=== PATIENT | female | born 1950 | race Caucasian/White ===

== ENCOUNTER 2022-02-14 07:02 | Day surgery (SDC) | payer OTHER, MEDICARE ==
[2022-02-13 10:07] LABS: Absolute Lymphocytes (CBC) 1.6 K/uL (0.7-4.9); Hematocrit 38.7 % (36.0-45.0); Lymphocytes % 30.2 % (15.3-44.8); MPV 8.6 fL (7.6-11.3); RBC Red Blood Cell Count 3.93 M/uL (3.86-4.86)
[2022-02-13 10:21] LABS: Potassium 3.8 mmol/L (3.5-5.1)
--- NOTE | 2022-02-13 14:12 | EKG ---
Test Date: 2022-02-13 Test Time: 07:52:04 Hand Molder: SANDIP MEASUREMENT RESULTS: Intervals: Rate: 74 VA: 158 QRSD: 144 QT: 432 QTc: 479 Veteran: P: 59 VA: 158 QRS: -15 T: 169 INTERPRETIVE STATEMENTS: Normal sinus rhythm with sinus arrhythmia Left bundle branch block Abnormal ECG No previous ECG available for comparison Electronically Signed On 02-13-22 14:11:17 CDT by Omid Bolaños
[2022-02-14] MEDS ORDERED: Ringers Lactate 1,000 ML IV ONE (07:29)
[2022-02-14] MEDS ORDERED: LIDOCAINE 1% MPF 5 ML VIAL ONE (08:16)
[2022-02-14] MEDS ORDERED: propofoL 200 MG/20 ML VIAL IV ONE ×2 (08:16→08:37)
[2022-02-14 08:57] VITALS: TEMP 97.7; O2SAT 97
[2022-02-14 09:35] VITALS: BP 154/72
== END 2022-02-14 09:20 | disposition home or self-care (01) ==
LOC: OR 07:02
PROVIDERS: ATTEND Surgery
PROC: 0DB78ZX Excision of Stomach, Pylorus, Via Natural or Artificial Opening Endoscopic, Diagnostic (ICD-10-PCS; 2022-02-14)
PROC: 0DB58ZX Excision of Esophagus, Via Natural or Artificial Opening Endoscopic, Diagnostic (ICD-10-PCS; 2022-02-14)
PROC: 0DB38ZX Excision of Lower Esophagus, Via Natural or Artificial Opening Endoscopic, Diagnostic (ICD-10-PCS; 2022-02-14)
PROC: 0DB98ZX Excision of Duodenum, Via Natural or Artificial Opening Endoscopic, Diagnostic (ICD-10-PCS; principal; 2022-02-14 08:15)
DX: K21.9 Gastro-esophageal reflux disease without esophagitis (principal); Z87.19 Personal history of other diseases of the digestive system; Z20.822 Contact with and (suspected) exposure to COVID-19; K29.50 Unspecified chronic gastritis without bleeding; K21.00 Gastro-esophageal reflux disease with esophagitis, without bleeding; K22.81 Esophageal polyp
CPT/HCPCS: 93005; 85025; 80048; 36415; 88312; 88313; 88305 ×2; 43239; 43251; U0003; J2704 ×2; J7120

== ENCOUNTER 2024-06-20 11:44 | Inpatient (IN) | payer OTHER, MEDICARE ==
[2024-06-20] MEDS ORDERED: CEFEPIME 2 GM VIAL ONE (12:06)
[2024-06-20] MEDS ORDERED: NA CHLORIDE 0.9% 1,000 ML ONE (12:07)
[2024-06-20] MEDS ORDERED: NA CHLORIDE 0.9% 100 ML ONE (12:07)
[2024-06-20 12:51] LABS: Specific Gravity 1.009 (1.005-1.030); Urine Bacteria <20 /HPF (<20); Urine Bilirubin NEGATIVE (Negative); Urine Blood Negative (Negative); Urine Clarity Extremely Turbid (Clear); Urine Color Light-Yellow (Yellow); Urine Culture Reflex Order REFLEXED; Urine Glucose NEGATIVE (Negative); Urine Ketones NEGATIVE (Negative); Urine Microscopic Reflex YN ORDER UMIC; Urine Mucus 1+ /HPF (None Seen); Urine Nitrite NEGATIVE (Negative); Urine Protein TRACE (Negative); Urine RBC None Seen /HPF (None Seen); Urine Urobilinogen Normal (Normal)
[2024-06-20 12:57] LABS: Absolute Basophils 0.1 K/uL (0-0.5); Absolute Eosinophils 0.1 K/uL (0-0.5); Absolute Lymphocytes (CBC) 1.6 K/uL (0.7-4.9); Absolute Monocytes 0.9 K/uL (0.1-1.3); Absolute Neutrophil 6.5 K/uL (1.8-8.0); Basophils % 0.8 % (0-1.3); Eosinophils % 0.8 % (0-4.4); Hematocrit 36.4 % (36.0-45.0); Hemoglobin 11.9 g/dL (12.0-15.0); Lymphocytes % 17.3 % (15.3-44.8); MCH 31.7 pg (27.0-35.0); MCHC 32.7 g/dL (32.0-36.0); MCV 96.7 fL (80-100); MPV 8.1 fL (7.6-11.3); Monocytes % 9.8 % (3.3-12.3); Neutrophils % 71.3 % (41.7-73.7); Platelets 406 thou/uL (152-406); RBC Red Blood Cell Count 3.77 M/uL (3.86-4.86); Red Cell Distribution Width 13.9 % (12.1-15.2)
[2024-06-20 13:02] LABS: PT Prothrombin Time 13.8 SECONDS (9.4-12.5); PTT, Activated Partial Thromb 29.1 SECONDS (24.3-36.9); Protime INR 1.24
--- NOTE | 2024-06-20 13:10 | RAD REPORT ---
EXAM DESCRIPTION: Isha Single View06/20/2024 1:02 pm CLINICAL HISTORY: Abdominal pain COMPARISON: none FINDINGS: The lungs appear clear of acute infiltrate. The heart is normal size IMPRESSION: No acute abnormalities displayed
[2024-06-20 13:12] LABS: Albumin 2.6 g/dL (3.4-5.0); Albumin/Globulin Ratio 0.5 (1.1-1.8); Anion Gap 10.3 mEq/L (5.0-15.0); Bilirubin Total 0.4 mg/dL (0.2-1.0); Globulin 4.8 g/dL (2.3-3.5); Potassium 4.3 mEq/L (3.5-5.1); Protein, Total 7.4 g/dL (6.4-8.2); Troponin High Sensitivity 5.2 pg/mL (<58.9)
--- NOTE | 2024-06-20 13:36 | RAD REPORT ---
EXAM DESCRIPTION: CT - Abdomen Pelvis W Contrast - 06/20/2024 1:21 pm CLINICAL HISTORY: Abdominal pain COMPARISON: none. TECHNIQUE: Computed axial tomography of the abdomen pelvis was obtained. 100 cc Isovue-300 was admin istered intravenously. Oral contrast was not requested which limits evaluation of bowel and appendix All CT scans are performed using dose optimization technique as appropriate and may include automated exposure control or mA/KV adjustment according to patient size. FINDINGS: The liver, spleen, pancreas, and adrenals appear unremarkable. Enhancement and thickening of the wall of the renal pelves and ureters There is no evidence of diverticulitis. A normal appendix. No adnexal mass. 1.5 centimeter right ovarian follicle. Sigmoidectomy IMPRESSION: Enhancement and thickening of the wall of the renal pelves and ureters may indicate an a scending UTI
--- NOTE | 2024-06-20 14:59 | EDPHYS ---
Physician Documentation [facility] Name: Kala Baig Age: 73 yrs Sex: Female : 1950 Arrival Date: 06/20/2024 Time: 11:44 Bed 18 Private MD: ED Physician Deandre Srivastava HPI: 06/20 14:52 This 73 yrs old Female presents to ER via Wheelchair with complaints of Doesn't Feel rt Right, Abdominal Pain. 14:52 Patient is currently on Cipro for a UTI. Patient has been sick about a week. In 1 visit rt Melissa when she was subsequently discharged, had 2 previous visits to [facility], second which she was admitted overnight given IV fluids, IV antibiotics, subsequently worsened. Patient was at Dr. Rich's office today for her , apparently did not look well, was hypotensive to the 70s and tachycardic. Patient was sent to the ED for further evaluation. Symptoms are moderate in severity, no other aggravating or alleviating factors.. Historical: - Allergies: 11:57 Albuterol; cm10 11:57 Doxycycline; cm10 11:57 Amoxicillin; cm10 11:57 Levaquin; cm10 11:57 Sulfa (Sulfonamide Antibiotics); cm10 11:57 Latex, Natural Rubber; cm10 11:57 Augmentin; cm10 11:57 Ketorolac; cm10 11:57 Nickel; cm10 - PMHx: 11:57 Hypertensive disorder; Osteoporosis; Osteoarthritis; Osteopenia; GERD; Diverticulosis; cm10 Falx Meningioma; Eczema; Psoriasis; 11:59 Piriformis Syndrome; cm10 - Immunization history:: Adult Immunizations up to date. - Infectious Disease History:: Denies. - Social history:: Smoking status: Patient denies any tobacco usage or history of. - Family history:: not pertinent. ROS: 14:52 Cardiovascular: Negative for chest pain, palpitations, and edema, Respiratory: Negative rt for shortness of breath, cough, wheezing, and pleuritic chest pain, MS/Extremity: Negative for injury and deformity, Skin: Negative for injury, rash, and discoloration, Neuro: Negative for headache, weakness, numbness, tingling, and seizure, 14:52 Constitutional: Positive for fatigue, malaise, 14:52 Abdomen/GI: Positive for abdominal pain, Negative for nausea and vomiting, Exam: 14:52 ECG was reviewed by the Attending Physician. rt Vital Signs: 11:45 BP 108 / 59; Pulse 79; Resp 18; Pulse Ox 97% on R/A; db 11:55 BP 114 / 74; Pulse 78; Resp 16; Temp 98.2; Pulse Ox 96% on R/A; Weight 67.13 kg; Height cm10 5 ft. 5 in. ; Pain 6/10; 12:30 BP 101 / 68; Pulse 73; Resp 16; Pulse Ox 96% on R/A; db 13:45 BP 135 / 78; Pulse 74; Resp 16; Pulse Ox 98% on R/A; db 14:30 BP 134 / 73; Pulse 76; Resp 16; Pulse Ox 98% on R/A; db 15:15 BP 119 / 78; Pulse 76; Resp 16; Pulse Ox 97% on R/A; db 16:35 BP 149 / 79; Pulse 79; Resp 16; Pulse Ox 99% on R/A; db 17:00 BP 139 / 68; Pulse 80; Resp 16; Pulse Ox 99% on R/A; db 11:55 Body Mass Index 24.63 (67.13 kg, 165.1 cm) cm10 11:55 Pain Scale: Adult cm10 MDM: 11:47 Patient medically screened. rt 14:52 Differential Diagnosis UTI, Kristopher. Data reviewed: vital signs, nurses notes, lab test rt result(s), EKG, radiologic studies. Consideration of Admission/Observation Patient was admitted/placed on observation. Management of patient was discussed with the following: Hospitalist: Agrees to admit. Independent interpretation of the following test(s) in the Emergency Department CT Scan: My interpretation is No ureteral stone seen on my interpretation of CT scan images. Care significantly affected by the following chronic conditions: Hypertension. Counseling: I had a detailed discussion with the patient and/or guardian regarding the historical points, exam findings, and any diagnostic results supporting the discharge/admit diagnosis, lab results, radiology results, the need for further work-up and treatment in the hospital. Response to treatment: the patient's symptoms have markedly improved after treatment. 06/20 11:58 Order name: Blood Culture Adult (2) rt 06/20 11:58 Order name: CBC with Diff; Complete Time: 13:06 rt 06/20 11:58 Order name: CMP; Complete Time: 13:44 rt 06/20 11:58 Order name: Lactate w/ 2H reflex if indic.; Complete Time: 13:44 rt 06/20 11:58 Order name: Protime (+inr); Complete Time: 13:06 rt 06/20 11:58 Order name: Ptt, Activated; Complete Time: 13:06 rt 06/20 11:58 Order name: Urinalysis w/ reflexes; Complete Time: 13:06 rt 06/20 11:58 Order name: Lipase; Complete Time: 13:44 rt 06/20 11:58 Order name: Troponin High Sensitivity; Complete Time: 13:44 rt 06/20 12:54 Order name: Urine Culture EDMS 06/20 16:21 Order name: Thyroid Stimulating Hormone EDMS 06/20 16:21 Order name: CBC with Automated Diff EDMS 06/20 16:21 Order name: CBC with Automated Diff EDMS 06/20 16:21 Order name: Comprehensive Metabolic Panel EDMS 06/20 16:21 Order name: Comprehensive Metabolic Panel EDMS 06/20 16:21 Order name: Lipid Profile EDMS 06/20 16:21 Order name: Lipid Profile EDMS 06/20 16:21 Order name: Magnesium EDMS 06/20 16:21 Order name: Magnesium EDMS 06/20 16:21 Order name: Phosphorus EDMS 06/20 16:21 Order name: Phosphorus EDMS 06/20 11:58 Order name: Chest Single View XRAY; Complete Time: 13:44 rt 06/20 11:58 Order name: CT Abd/Pelvis - IV Contrast Only; Complete Time: 13:44 rt 06/20 11:58 Order name: EKG; Complete Time: 11:59 rt 06/20 11:58 Order name: Accucheck; Complete Time: 14:11 rt 06/20 11:58 Order name: Cardiac monitoring; Complete Time: 12:43 rt 06/20 11:58 Order name: EKG - Nurse/Tech; Complete Time: 13:54 rt 06/20 11:58 Order name: IV Saline Lock - Large Bore; Complete Time: 12:43 rt 06/20 11:58 Order name: Labs collected and sent; Complete Time: 12:43 rt 06/20 11:58 Order name: O2 Per Protocol; Complete Time: 12:43 rt 06/20 11:58 Order name: O2 Sat Monitoring; Complete Time: 12:43 rt 09 11:58 Order name: Vital Signs; Complete Time: 12:43 rt EC:52 Rate is 74 beats/min. Rhythm is regular, Normal Sinus Rhythm with No ectopy, Left rt bundle branch block. QRS [place] is Normal. ME interval is normal. QRS interval is normal. QT interval is normal. No Q waves. No ST changes noted. Administered Medications: 12:30 Drug: NS 0.9% IV 1000 ml IV at 1 bolus Per protocol; 1000 mL bolus Route: IV; Rate: 1 db bolus; Site: right antecubital; 13:30 Follow up: Response: No adverse reaction; IV Status: Completed infusion; IV Intake: kb3 1000ml 12:36 Drug: Cefepime IVPB 2 grams IVPB at 200 ml/hr once over 30 mins; (mix in NS 100 mL) db Route: IVPB; Rate: 200 ml/hr; Infused Over: 30 mins; Site: right antecubital; 13:08 Follow up: Response: No adverse reaction; IV Status: Completed infusion; IV Intake: db 100ml Disposition Summary: 06/20/24 14:58 Hospitalization Ordered Notes: Provider: Mariusz Greenfield rt Condition: Fair rt Problem: new rt Symptoms: have improved rt Bed/Room Type: Standard rt Location: Telemetry/MedSurg (Inpatient)(06/20/24 16:34) bd Room Assignment: 214(06/20/24 16:34) bd Diagnosis - Urinary tract infection rt - Hypotension rt Forms: - Medication Reconciliation Form rt - SBAR form rt - Leadership Thank You Letter rt Signatures: Dispatcher [employer] Carline Freire Danielle, RN RN db Deandre Srivastava MD MD rt Charo Valencia RN RN cm10 Angela Melgoza RN kb3 Corrections: (The following items were deleted from the chart) 12:00 11:57 PMHx: Piroformis Syndrome; cm10 cm10 15:58 14:58 Telemetry/MedSurg (Inpatient) rt bd 15:58 14:58 rt bd 16:34 15:58 [facility] ER HOLD bd bd 16:34 15:58 ERHOLD- bd bd 16:37 14:58 Inpatient Admission rt sb5
--- NOTE | 2024-06-20 14:59 | ER ---
Nurse's Notes [facility] Name: Kala Baig Age: 73 yrs Sex: Female : 1950 Arrival Date: 06/20/2024 Time: 11:44 Bed 18 Private MD: Diagnosis: Urinary tract infection;Hypotension Presentation: 06/20 11:55 Chief complaint: Patient states: Epigastric abdominal pain onset last week. PT was seen cm10 at [facility] and diagnosed with a UTI last week. PT reports nausea. Sent to the ED by Dr. Rich. Pt also reports generalized body aches and generalized weakness. Coronavirus screen: Client denies travel out of the [place] in the last 14 days. At this time, the client does not indicate any symptoms associated with coronavirus-19. Ebola Screen: Patient denies travel to an Ebola-affected area in the 21 days before illness onset. No symptoms or risks identified at this time. Initial Sepsis Screen: Does the patient meet any 2 criteria? No. Patient's initial sepsis screen is negative. Does the patient have a suspected source of infection? No. Patient's initial sepsis screen is negative. Risk Assessment: Do you want to hurt yourself or someone else? Patient reports no desire to harm self or others. Onset of symptoms was June 20, 2024. 11:55 Method Of Arrival: Wheelchair cm10 11:55 Acuity: FLORENCIA 3 cm10 Triage Assessment: 12:00 General: Appears in no apparent distress. comfortable, Behavior is calm, cooperative. cm10 Neuro: No deficits noted. Level of Consciousness is awake, alert, obeys commands, Oriented to person, place, time, situation, Appropriate for age. Respiratory: No deficits noted. Airway is patent Respiratory effort is even, unlabored, Respiratory pattern is regular, symmetrical. Historical: - Allergies: 11:57 Albuterol; cm10 11:57 Doxycycline; cm10 11:57 Amoxicillin; cm10 11:57 Levaquin; cm10 11:57 Sulfa (Sulfonamide Antibiotics); cm10 11:57 Latex, Natural Rubber; cm10 11:57 Augmentin; cm10 11:57 Ketorolac; cm10 11:57 Nickel; cm10 - PMHx: 11:57 Hypertensive disorder; Osteoporosis; Osteoarthritis; Osteopenia; GERD; Diverticulosis; cm10 Falx Meningioma; Eczema; Psoriasis; 11:59 Piriformis Syndrome; cm10 - Immunization history:: Adult Immunizations up to date. - Infectious Disease History:: Denies. - Social history:: Smoking status: Patient denies any tobacco usage or history of. - Family history:: not pertinent. Screenin:[facility] ED Fall Risk Assessment (Adult) History of falling in the last 3 months, db including since admission No falls in past 3 months (0 pts) Confusion or Disorientation No (0 pts) Intoxicated or Sedated No (0 pts) Impaired Gait No (0 pts) Mobility Assist Device Used No (0 pt) Altered Elimination No (0 pt) Score/Fall Risk Level 0 - 2 = Low Risk Oriented to surroundings, Maintained a safe environment. Abuse screen: Denies threats or abuse. Denies injuries from another. Nutritional screening: No deficits noted. Tuberculosis screening: No symptoms or risk factors identified. Assessment: 12:45 Reassessment: Patient appears in no apparent distress at this time. Patient and/or db family updated on plan of care and expected duration. Pain level reassessed. Patient is alert, oriented x 3, equal unlabored respirations, skin warm/dry/pink. General: Appears in no apparent distress. uncomfortable, Behavior is calm, cooperative. Pain: Denies pain. Neuro: Level of Consciousness is awake, alert, obeys commands, Oriented to person, place, time, situation. GI: Abdomen is flat, Bowel sounds present X 4 quads. Abd is soft. 13:30 Reassessment: Patient appears in no apparent distress at this time. Patient and/or db family updated on plan of care and expected duration. Pain level reassessed. Patient is alert, oriented x 3, equal unlabored respirations, skin warm/dry/pink. 14:24 Reassessment: Patient appears in no apparent distress at this time. Patient and/or db family updated on plan of care and expected duration. Pain level reassessed. Patient is alert, oriented x 3, equal unlabored respirations, skin warm/dry/pink. PATIENT AMBULATORY TO RESTROOM. 16:15 Reassessment: Patient appears in no apparent distress at this time. Patient and/or db family updated on plan of care and expected duration. Pain level reassessed. Patient is alert, oriented x 3, equal unlabored respirations, skin warm/dry/pink. PATIENT AMBULATORY TO RESTROOM Patient denies pain at this time. 17:00 Reassessment: Patient appears in no apparent distress at this time. Patient and/or db family updated on plan of care and expected duration. Pain level reassessed. Patient is alert, oriented x 3, equal unlabored respirations, skin warm/dry/pink. Patient states feeling better. Patient states symptoms have improved. 17:05 Reassessment: REPORT FAXED TO 214. bp Vital Signs: 11:45 BP 108 / 59; Pulse 79; Resp 18; Pulse Ox 97% on R/A; db 11:55 BP 114 / 74; Pulse 78; Resp 16; Temp 98.2; Pulse Ox 96% on R/A; Weight 67.13 kg; Height cm10 5 ft. 5 in. ; Pain 6/10; 12:30 BP 101 / 68; Pulse 73; Resp 16; Pulse Ox 96% on R/A; db 13:45 BP 135 / 78; Pulse 74; Resp 16; Pulse Ox 98% on R/A; db 14:30 BP 134 / 73; Pulse 76; Resp 16; Pulse Ox 98% on R/A; db 15:15 BP 119 / 78; Pulse 76; Resp 16; Pulse Ox 97% on R/A; db 16:35 BP 149 / 79; Pulse 79; Resp 16; Pulse Ox 99% on R/A; db 17:00 BP 139 / 68; Pulse 80; Resp 16; Pulse Ox 99% on R/A; db 11:55 Body Mass Index 24.63 (67.13 kg, 165.1 cm) cm10 11:55 Pain Scale: Adult cm10 ED Course: 11:46 Patient arrived in ED. im 11:47 Deandre Srivastava MD is Attending Physician. rt 11:57 Triage completed. cm10 12:00 Jackie Isbell, CHAPO is Primary Nurse. db 12:01 Arm band placed on Patient placed in an exam room, on a stretcher. cm10 12:29 First set of blood cultures drawn by me. db 12:30 Initial lab(s) drawn, by me, sent to lab. Inserted saline lock: 20 gauge in right db antecubital area, using aseptic technique. Blood collected. Flushed with 10 mL NS. 12:35 Second set of blood cultures drawn by me. db 13:02 Chest Single View XRAY In Process Unspecified. EDMS 13:23 CT Abd/Pelvis - IV Contrast Only In Process Unspecified. EDMS 14:58 Mariusz Greenfield is Hospitalizing Provider. rt 15:57 CM met with and her Eliel at the bedside. Patient identified by ane name and . Demographic sheet confirmed. Patient states she lives with in a single story home. She reports that prior to admission, she performs ADLs independently and without physical limitation. MPOA is in place. NO HH, DME, home oxygen or other medical services at this time. Patient's preferred plan is to return home upon discharge and Eliel states he will transport her home. CM team will continue to follow and coordinate care. 17:53 No provider procedures requiring assistance completed. Patient admitted, IV remains in kb3 place. 17:54 Patient has correct armband on for positive identification. Placed in gown. Bed in low kb3 position. Call light in reach. Provided Education on: Admission. Administered Medications: 12:30 Drug: NS 0.9% IV 1000 ml IV at 1 bolus Per protocol; 1000 mL bolus Route: IV; Rate: 1 db bolus; Site: right antecubital; 13:30 Follow up: Response: No adverse reaction; IV Status: Completed infusion; IV Intake: kb3 1000ml 12:36 Drug: Cefepime IVPB 2 grams IVPB at 200 ml/hr once over 30 mins; (mix in NS 100 mL) db Route: IVPB; Rate: 200 ml/hr; Infused Over: 30 mins; Site: right antecubital; 13:08 Follow up: Response: No adverse reaction; IV Status: Completed infusion; IV Intake: db 100ml Medication: 17:00 VIS not applicable for this client. db Intake: 13:08 IV: 100ml; Total: 100ml. db 13:30 IV: 1000ml; Total: 1100ml. kb3 Outcome: 14:58 Decision to Hospitalize by Provider. rt 17:53 Admitted to Med/surg accompanied by nurse, [email or web address] 17:53 Condition: stable 17:53 Instructed on the need for admit, Demonstrated understanding of instructions, 17:54 Patient left the ED. kb3 Signatures: Dispatcher [employer] EDCm Cantu RN RN bp Angela Melgoza RN RN kb3 Jackie IsbellCHAPO RN, Ryan, MD MD rt Mendoza, Itzel im Martinez, Clarissa, RN RN cm10 Jocelin Rodriguez RN RN ane Corrections: (The following items were deleted from the chart) 12:00 11:57 PMHx: Piroformis Syndrome; cm10 cm10 12: 11:55 Chief complaint: Patient states: Epigastric abdominal pain onset last week. PT cm10 was seen at [facility] and diagnosed with a UTI last week. PT reports nausea. Sent to the ED by Dr. Rich. cm10
--- NOTE | 2024-06-20 16:03 | P.HP ---
Certification for Inpatient Patient admitted to: Inpatient With expected LOS: >2 Midnights Practitioner: I am a practitioner with admitting privileges, knowledge of patient current condition, hospital course, and medical plan of care. Services: Services provided to patient in accordance with Admission requirements found in Title 42 Section 412.3 of the Code of Federal Regulations Patient History Date of Service: 06/20/24 Reason for admission: ascending UTI, JUAN History of Present Illness: Mrs. Baig is a 73-year-old female with a past medical history of hypertension with a left bundle branch block, allergic rhinitis, osteoporosis, gluten intolerance, and failed outpatient therapy for UTI. She is allergic several classes of antibiotics. She and her state that she has been in four emergency departments in the last week for continuation of urinary tract infection symptoms with minimal treatment success. Mrs. Baig went to her 's doctor's appointment today and she looked unwell. Her vital signs were taken and she was noted to be hypotensive with a systolic blood pressure 70. She arrived in the emergency department and was evaluated, treated with 1 L normal saline bolus, a urine culture was sent, and then she received Merrem 2 g IV piggyback. She will be admitted for evaluation and treatment with antibiotics directed toward urine culture results. Allergies amoxicillin Allergy (Verified 02/13/22 08:52) Hives clavulanic acid [From Augmentin] Allergy (Verified 02/13/22 08:52) Hives doxycycline Allergy (Verified 02/13/22 08:52) Hives latex Allergy (Verified 02/13/22 08:52) English Skin levofloxacin [From Levaquin] Allergy (Verified 02/13/22 08:52) "Out of body experience" nickel Allergy (Verified 02/13/22 08:52) Irritation that leads to sores Sulfa (Sulfonamide Antibiotics) Allergy (Verified 02/13/22 08:52) Severe Headache albuterol Adverse Reaction (Verified 02/13/22 08:52) Heart Racing gluten Adverse Reaction (Verified 02/13/22 08:52) Nausea/Vomiting Home Medications: Amitriptyline HCl 25 mg PO BEDTIME 02/13/22 Bacillus Coagulans/Inulin [Probiotic 1 B Cfu-250 mg Cap] 1 each PO DAILY 02/13/22 Biotin 5,000 mcg PO DAILY 02/13/22 Calcium Carb/Mag Ox/Zinc Sulf [Cqp-Aoz-Avzq 334-134-5 mg Tab] 1 each PO BID 02/13/22 Cholecalciferol (Vitamin D3) [Vitamin D3] 2,000 unit PO DAILY 02/13/22 Cranberry Conc/Ascorbic Acid [Cranberry Plus Vitamin C Sftgl] 1 each PO BID 02/13/22 D-Mannose [Azo D-Mannose] 1,000 mg PO BID 02/13/22 Dexchlorpheniramin/Pseudoephed [Rescon Tablet] 1 each PO BID 02/13/22 Estrogens,Conj Cream [Premarin 0.625MG/Gm] 1.5 gm VAG DIRECTED 02/13/22 Folic Acid 1 mg PO BID 02/13/22 Irbesartan 300 mg PO DAILY 02/13/22 Ketoconazole/Skin Cleanser 28 [Ketodan 2% Foam Kit] 1 angel TP DAILY 02/13/22 Levothyroxine Sodium [Levothyroxine] 25 mcg PO DAILY 02/13/22 Meloxicam [Mobic] 15 mg PO DAILY 02/13/22 Metoprolol Tartrate [Lopressor] 50 mg PO BID 02/13/22 Mirabegron [Myrbetriq] 25 mg PO EVERY 3RD DAY 02/13/22 Mirtazapine 7.5 mg PO BEDTIME 02/13/22 Montelukast [Singulair] 10 mg PO DAILY 02/13/22 Omeprazole [Prilosec] 40 mg PO BID 02/13/22 Prolia 1 dose SQ DIRECTED 02/13/22 - Past Medical/Surgical History Has patient received pneumonia vaccine in the past: Yes -: Osteoporosis -: Hypertension -: Hypothyroidism -: GERD -: diverticulitis -: Colectomy -: Wrist surgery -: D&C -: Fundoplication Psychosocial/ Personal History: Lives at home with her . Gluten intolerant. Multiple environmental and medicinal allergies. - Family History Family History: Reviewed- Non-Contributory - Social History Smoking Status: Unknown if ever smoked Alcohol use: No CD- Drugs: No Caffeine use: Yes Place of Residence: Home Review of Systems 10-point ROS is otherwise unremarkable General: Weakness, Malaise, As per HPI Gastrointestinal: Nausea, Vomiting, Constipation Genitourinary: Frequency, Urgency, As per HPI Physical Examination - Physical Exam General: Alert, In no apparent distress, Oriented x3 HEENT: Atraumatic, Normocephalic Neck: Supple Respiratory: Normal air movement Cardiovascular: No edema, Normal pulses, Regular rate/rhythm Capillary refill: <2 Seconds Gastrointestinal: Soft and benign Musculoskeletal: No clubbing, No swelling Integumentary: No rashes Neurological: Normal speech, Normal tone, Normal affect Lymphatics: No axilla or inguinal lymphadenopathy External genitalia: Deferred Rectal: Deferred - Studies Laboratory Data (last 24 hrs) 06/20/24 06/20/24 06/20/24 12:35 12:35 12:35 WBC 9.20 Hgb 11.9 L Hct 36.4 Plt Count 406 PT 13.8 H INR 1.24 APTT 29.1 Sodium 133 L Potassium 4.3 BUN 19 H Creatinine 1.21 H Glucose 117 H Total Bilirubin 0.4 AST 24 ALT 40 Alkaline Phosphatase 118 H Lipase 54 Assessment and Plan - Plan Ascending UTI with JUAN Urine culture Merrem 1 g every 12h pending culture results Avoid nephrotoxins Hold patient's meloxicam Gluten intolerance/constipation Gluten-free diet Lactulose 10 mg p.o. twice daily Lactinex p.o. 3 times daily Carafate Hyponatremia 0.45% normal saline at 75ml/hr Hypertension with Left BBB Monitor and trend Carvedilol 12.5 mg p.o. twice daily with holding parameters Hold Irbesartan for now Hypothyroidism TSH Levothyroxine 0.1 mg p.o. daily Allergic rhinitis Flonase as directed VTE/GI prophylaxis Teds/Protonix - Advance Directives Does patient have a Living Will: No Does patient have a Durable POA for Healthcare: No
[2024-06-20] MEDS ORDERED: ALPRAZOLAM 0.25 MG TABLET PO PRN (16:10)
[2024-06-20] MEDS: SUCRALFATE 1 GM TABLET PO SCH (17:00)
[2024-06-20] MEDS ORDERED: carvediloL 25 MG TAB PO SCH (18:00)
[2024-06-20 18:04] VITALS: BMI 24.6
[2024-06-20] MEDS: carvediloL 12.5 MG TAB PO SCH (18:14)
[2024-06-20 18:18] VITALS: O2SAT 96
[2024-06-20] MEDS: Meropenem 1,000 MG in NA CHLORIDE 0.9% 100 ML IV SCH (18:18)
[2024-06-20] MEDS: NACHLORIDE 0.45% 1,000 ML IV SCH (18:18)
[2024-06-20] MEDS: LACTULOSE 20 GM/30 ML UCUP PO SCH (20:14)
[2024-06-20] MEDS: PANTOPRAZOLE 40 MG INJ IVP SCH (20:14)
[2024-06-20] MEDS: FLUTICASONE 50MCG NASAL SPRAY NAS SCH (20:15)
[2024-06-20] MEDS: FOLIC ACID 1 MG TABLET PO SCH (20:16)
[2024-06-20] MEDS: LACTOBACILLUS/ACIDOPHILUS TAB PO SCH (20:16)
[2024-06-21 06:04] LABS: Absolute Basophils 0.1 K/uL (0-0.5); Absolute Eosinophils 0.1 K/uL (0-0.5); Absolute Lymphocytes (CBC) 1.5 K/uL (0.7-4.9); Absolute Monocytes 0.7 K/uL (0.1-1.3); Absolute Neutrophil 4.8 K/uL (1.8-8.0); Basophils % 0.9 % (0-1.3); Hematocrit 33.1 % (36.0-45.0); Hemoglobin 11.2 g/dL (12.0-15.0); Lymphocytes % 20.8 % (15.3-44.8); MCH 32.3 pg (27.0-35.0); MCHC 33.7 g/dL (32.0-36.0); MCV 95.8 fL (80-100); MPV 7.6 fL (7.6-11.3); Monocytes % 10.2 % (3.3-12.3); Neutrophils % 67.1 % (41.7-73.7); Nucleated Red Blood Cells % 0.1 % (0-0); Platelets 344 thou/uL (152-406); RBC Red Blood Cell Count 3.46 M/uL (3.86-4.86); Red Cell Distribution Width 14.2 % (12.1-15.2)
[2024-06-21 06:24] LABS: Albumin 2.5 g/dL (3.4-5.0); Albumin/Globulin Ratio 0.6 (1.1-1.8); Anion Gap 6.9 mEq/L (5.0-15.0); Bilirubin Total 0.5 mg/dL (0.2-1.0); Globulin 4.2 g/dL (2.3-3.5); Magnesium 2.1 mg/dL (1.6-2.4); Phosphorus 3.2 mg/dL (2.5-4.9); Potassium 3.9 mEq/L (3.5-5.1); Protein, Total 6.7 g/dL (6.4-8.2)
[2024-06-21] MEDS ORDERED: LEVOTHYROXINE SOD 0.1 MG TAB PO SCH (06:30)
--- NOTE | 2024-06-21 06:41 | P.PN ---
Date of Service: 06/21/24 Subjective: reports still dealing with urinary frequency/urgency nausea improving denies any new/worsening issues afebrile ROS: 10 point ROS as noted above, otherwise negative Physical Exam: GEN: Alert, oriented, NAD CV: Regular rate and rhythm, no edema Pulm: Nonlabored respirations on room air, clear bilaterally ABD: Soft, nontender, nondistended Neuro: Normal speech, normal affect vitals reviewed Problem List: UTI; recurrent / failed outpatient treatment JUAN, mild; resolved Gluten intolerance/constipation Hypertension Hypothyroidism Allergic Rhinitis Hx left Bunde branch block UTI; recurrent On admission presents with weakness, fatigue, headache, nausea for the last 1-2 weeks. reports symptoms of headache, fatigue, nausea started ~1 day after starting montelukast. was seen on [facility] ~1 week ago and [facility] twice in the last week was dealing with nausea/vomiting at the time. LFTs were reportedly elevated at [place]. Treated with IV fluids, IV antibiotics and discharged with oral abx. Given 1 week prescription for Nitrofurantoin on 06/13, and 5 day script for cipro 06/16 per EMR. Found to be hypotensive (70s systolic) and tachycardic in office prior and was advised to come to ER for further evaluation. CT abdomen (06/20): concern for Ascending UTI. incidental 1.5 cm right ovarian follicle. continue empiric merrem (06/20-) pt with multiple allergies reports prior UTIs only causing symptoms of frequency afebrile, no leukocytosis follow urine and blood cultures - likely may not grow given recent abx usage ID consulted JUAN, mild; resolved suspect secondary to dehydration; improving with IVF overnight continue to monitor renal function Gluten intolerance/constipation gluten free diet continue lactulose, lactinex, carafate Hypertension confirm home meds, restart as appropriate resume coreg Hypothyroidism continue home synthroid Allergic Rhinitis continue flonase Dispo: Home, ~1-2 days Pending cultures, ID recs Time Spent Managing Pts Care (In Minutes): 41
[2024-06-21] MEDS: LEVOTHYROXINE SOD 0.025 MG TAB PO SCH (07:53)
[2024-06-21] MEDS: POTASSIUM CL SA 10 MEQ TAB PO ONE (07:56)
--- NOTE | 2024-06-21 16:56 | EKG ---
Test Date: 2024-06-20 Test Time: 12:47:22 System Support Technician: MODESTA MEASUREMENT RESULTS: Intervals: Rate: 74 VT: 156 QRSD: 130 QT: 450 QTc: 499 [place]: P: 42 VT: 156 QRS: -14 T: 141 INTERPRETIVE STATEMENTS: Normal sinus rhythm Left bundle branch block Abnormal ECG Compared to ECG 02/13/2022 07:52:04 Sinus arrhythmia no longer present Electronically Signed On 06-21-24 16:53:15 CDT by Omid Bolaños
--- NOTE | 2024-06-21 17:12 | CON ---
History Of Present Illness: This is a 73-year-old female with significant past medical history of hypertension with left bundle branch block, allergic rhinitis, osteoporosis, gluten intolerance, coming in with failed outpatient therapy of urinary tract infection. She is allergic to several antibiotics including Amoxil causing hives, doxycycline causing hives, latex causes skin bumps, Levaquin causes out-of-body experience, sulfa drugs causes severe headaches. The patient has been in and out of the emergency room and this is her forth visit to emergency room in last 2 weeks. Feels much better today. Her initial symptoms included nausea, vomiting, generalized body aches. Past Medical History: As per HPI. Social History: Nonsmoker, nondrinker. Secondary exposure to smoke was there because of her family. Family History: Significant for different cancers. Medications: Include meropenem. See MAR for other medications. Allergies: AUGMENTIN, DOXYCYCLINE, LEVAQUIN, SULFA DRUGS. SEE ALLERGY PROFILE. Review of Systems: A 10-point review was performed. Physical Examination: General: This is a 73-year-old female, lying in bed, not in any acute cardiopulmonary distress. Vital Signs: Temperature 97, pulse 71, respirations 16, blood pressure 140/73. HEENT: Unremarkable. Neck: Supple. Lungs: Basal crackles. Heart: S1, S2. Regular. Abdomen: Soft, nontender. Bowel sounds present. Extremities: No edema. Laboratory Data: Shows WBC 7.2, hemoglobin 11.2, platelets 344. Chemistry shows BUN of 15, creatinine 1, glucose 98, calcium 10.2, albumin level 2.5. Urinalysis shows wbc 10 to 20 with leukocyte esterase of 75, extremely turbid urine. Micro data shows blood cultures are pending. Urine culture shows mixed orlin less than 10,000. Assessment And Plan: A 73-year-old female with urinary tract infection of [address] scan of abdomen and pelvis shows patient has enhancement of thickened and thickening of the wall of the renal pelvis and ureters may indicate an ascending urinary tract infection. We will recommend antibiotic for 2 weeks. Obtain cultures from her previous emergency visit at [facility]. Continue current treatment. Thank you for consult. EMIL/TERRIE Voice ID: [id number] Report ID: [id number] [facility]ITALAlex
[2024-06-22 06:15] LABS: Absolute Basophils 0.1 K/uL (0-0.5); Absolute Eosinophils 0.1 K/uL (0-0.5); Absolute Lymphocytes (CBC) 1.4 K/uL (0.7-4.9); Absolute Monocytes 0.7 K/uL (0.1-1.3); Absolute Neutrophil 4.2 K/uL (1.8-8.0); Basophils % 1.1 % (0-1.3); Eosinophils % 1.4 % (0-4.4); Hematocrit 32.7 % (36.0-45.0); Hemoglobin 11.2 g/dL (12.0-15.0); Lymphocytes % 21.5 % (15.3-44.8); MCH 32.6 pg (27.0-35.0); MCHC 34.3 g/dL (32.0-36.0); MPV 7.9 fL (7.6-11.3); Monocytes % 10.8 % (3.3-12.3); Neutrophils % 65.2 % (41.7-73.7); Nucleated Red Blood Cells % 0.1 % (0-0); Platelets 388 thou/uL (152-406); RBC Red Blood Cell Count 3.45 M/uL (3.86-4.86)
[2024-06-22 06:29] LABS: Anion Gap 6.7 mEq/L (5.0-15.0); Potassium 3.7 mEq/L (3.5-5.1)
[2024-06-22] MEDS: POTASSIUM CL SA 10 MEQ TAB PO ONE (09:39)
--- NOTE | 2024-06-22 11:30 | P.PN ---
Date of Service: 06/22/24 Urine culture from [facility] (06/13/24) Subjective: improving mild nausea mild urinary frequency no new/worsening ROS: 10 point ROS as noted above, otherwise negative Physical Exam: GEN: Alert, oriented, NAD CV: Regular rate and rhythm, no edema Pulm: Nonlabored respirations on room air, clear bilaterally ABD: Soft, nontender, nondistended Neuro: Normal speech, normal affect vitals reviewed Problem List: UTI; recurrent / failed outpatient treatment JUAN, mild; resolved Gluten intolerance/constipation Hypertension Hypothyroidism Allergic Rhinitis Hx left Bunde branch block UTI; recurrent / failed outpatient treatment On admission presents with weakness, fatigue, headache, nausea for the last 1-2 weeks reports symptoms of headache, fatigue, nausea started ~1 day after starting montelukast. was seen on [place] [facility] ~1 week ago and [facility] twice in the last week was dealing with nausea/vomiting at the time. LFTs were reportedly elevated at [place]. Treated with IV fluids, IV antibiotics and discharged with oral abx. Given 1 week prescription for Nitrofurantoin on 06/13, and 5 day script for cipro 06/16 per EMR. Found to be hypotensive (70s systolic) and tachycardic in office prior and was advised to come to ER for further evaluation. CT abdomen (06/20): concern for Ascending UTI. incidental 1.5 cm right ovarian follicle. prior UTIs only causing symptoms of frequency Urine cx (06/20): Mixed orlin Blood cx (06/20): NGTD Obtained results of urine culture from [place] which grew Maza-sensitive E. coli continue empiric merrem for now (06/20-) ID consulted; recommending 2 weeks of IV invanz (end date: 07/04/24) Midline ordered 06/22 for IV abx afebrile, no leukocytosis continue probiotic while on antibiotics JUAN, mild; resolved suspect secondary to dehydration; improved with IVF continue to monitor renal function dc IVF Gluten intolerance/constipation gluten free diet continue lactulose, lactinex, carafate Hypertension confirm home meds, restart as appropriate resume coreg Hypothyroidism continue home synthroid Allergic Rhinitis continue flonase Dispo: Home, ~1 day Pending IV abx setup Time Spent Managing Pts Care (In Minutes): 41
[2024-06-22] MEDS: Mupirocin NASAL 2 APPL/1 GM TUBE NAS SCH (21:00)
[2024-06-23 05:48] LABS: Anion Gap 4.9 mEq/L (5.0-15.0); Magnesium 2.1 mg/dL (1.6-2.4); Potassium 3.9 mEq/L (3.5-5.1)
[2024-06-23] MEDS: POTASSIUM CL SA 10 MEQ TAB PO ONE (08:42)
--- NOTE | 2024-06-23 09:52 | P.DS ---
Admission Date: 06/20/24 Discharge Date: 06/24/24 Disposition: DC HOME/HOME HEALTH CARE Reason for Admission: ascending UTI, JUAN Consultations: ID - Dr. Tovar Brief History of Present Illness: 73yo F, PMH: hypertension with a left bundle branch block, allergic rhinitis, osteoporosis, gluten intolerance, Patient presented to ED with weakness, fatigue, headache, nausea for the last 1- 2 weeks. She and her state that she has been in four emergency departments in the last week for continuation of urinary tract infection symptoms with minimal treatment success and failed outpatient therapy for UTI. She is allergic several classes of antibiotics. Mrs. Baig went to her 's doctor's appointment today and she looked unwell. Her vital signs were taken and she was noted to be hypotensive with a systolic blood pressure 70. She arrived in the emergency department and was evaluated, treated with 1 L normal saline bolus, a urine culture was sent, and then she received Merrem 2 g IV piggyback. She will be admitted for evaluation and treatment with antibiotics directed toward urine culture results. Hospital Course: Problem List: UTI; recurrent / failed outpatient treatment JUAN, mild; resolved Gluten intolerance/constipation Hypertension Hypothyroidism Allergic Rhinitis Hx left Bunde branch block Physician discharge instructions: Patient presented with weakness, fatigue, headache, nausea for the last 1-2 weeks secondary to UTI. She reports being seen ~3 times in various ERs this past week for similar symptoms. She was treated with IV fluids, IV antibiotics and discharged with oral antibiotics but symptoms persisted/worsened so she came here. CT abdomen this admission with findings consistent with ascending UTI. She was initially given IV merrem d/t multiple antibiotic allergies and had improvement of her symptoms. Urine and blood cultures were without growth here - suspect due to recent abx usage prior to hospitalization. Obtained results of urine culture from recent [place] visit on 06/13 which grew Maza-sensitive E. coli. ID was consulted and recommended 2 weeks of IV invanz given minimal improvement on oral abx, persistent symptoms. Midline placed for IV antibiotics 06/23. Patient was feeling better, afebrile without leukocytosis, headache/nausea improved, and was deemed stable for discharge. Patient clinically improved and was slated for discharge yesterday when she developed nausea/vomiting shortly after administration of invanz. Discussed with patient/family, she was monitored overnight and was administered Invanz again. No further episodes of nausea/vomiting reported. She was able to tolerate Invanz without issues on 06/24 and deemed stable for discharge. Medications: IV invanz (end date: 07/04/24) Mupirocin while receiving antibiotic Can take over the counter probiotic while on antibiotics Carafate as needed for acid reflux symptoms continue other home medications as previously prescribed Follow up: PCP 3-5 days please call to schedule / confirm appointments Physical Exam: GEN: Alert, oriented, NAD CV: Regular rate and rhythm, no edema Pulm: Nonlabored respirations on room air, clear bilaterally ABD: Soft, nontender, nondistended Neuro: Normal speech, normal affect Vital Signs/Physical Exam: Temp Pulse Resp BP Pulse Ox 97.7 F 18 L 18 127/67 93 06/23/24 08:00 06/23/24 08:00 06/23/24 08:00 06/23/24 08:00 06/23/24 08:00 Laboratory Data at Discharge: WBC 6.50 thou/uL (4.3-10.9) 06/22/24 05:45 Hgb 11.2 g/dL (12.0-15.0) L 06/22/24 05:45 Hct 32.7 % (36.0-45.0) L 06/22/24 05:45 Plt Count 388 thou/uL (152-406) 06/22/24 05:45 PT 13.8 SECONDS (9.4-12.5) H 06/20/24 12:35 INR 1.24 06/20/24 12:35 APTT 29.1 SECONDS (24.3-36.9) 06/20/24 12:35 Sodium 135 mEq/L (136-145) L 06/23/24 05:10 Potassium 3.9 mEq/L (3.5-5.1) 06/23/24 05:10 BUN 12 mg/dL (7-18) 06/23/24 05:10 Creatinine 0.98 mg/dL (0.55-1.02) 06/23/24 05:10 Glucose 101 mg/dL (74-106) 06/23/24 05:10 Phosphorus 3.2 mg/dL (2.5-4.9) 06/21/24 05:46 Magnesium 2.1 mg/dL (1.6-2.4) 06/23/24 05:10 Total Bilirubin 0.5 mg/dL (0.2-1.0) 06/21/24 05:46 AST 21 U/L (15-37) 06/21/24 05:46 ALT 35 U/L (13-56) 06/21/24 05:46 Alkaline Phosphatase 101 U/L (45-117) 06/21/24 05:46 Triglycerides 101 mg/dL (<150) 06/21/24 05:46 Cholesterol 159 mg/dL (<200) 06/21/24 05:46 HDL Cholesterol 37 mg/dL (40-60) L 06/21/24 05:46 Cholesterol/HDL Ratio 4.30 06/21/24 05:46 Lipase 54 U/L (13-75) 06/20/24 12:35 Home Medications: Estrogens,Conj Cream [Premarin 0.625MG/Gm*] 1.5 gm VAG SEECOM 02/13/22 Folic Acid 1 mg PO BID 02/13/22 Levothyroxine Sodium 25 mcg PO DAILY 02/13/22 Azilsartan Medoxomil [Edarbi] 1 tab PO DAILY 06/20/24 Carvedilol [Coreg] 12.5 mg PO BID 06/20/24 Mupirocin Calcium [Bactroban Nasal*] 1 appl JAY BID 12 Days #1 tube 06/23/24 Sucralfate [Carafate -Tab] 1 gm PO ACHS 15 Days #60 tab 06/24/24 New Medications: Mupirocin Calcium [Bactroban Nasal*] 1 appl JAY BID 12 Days #1 tube Sucralfate [Carafate -Tab] 1 gm PO ACHS 15 Days #60 tab Physician Discharge Instructions: Physician discharge instructions: Patient presented with weakness, fatigue, headache, nausea for the last 1-2 weeks secondary to UTI. She reports being seen ~3 times in various ERs this past week for similar symptoms. She was treated with IV fluids, IV antibiotics and discharged with oral antibiotics but symptoms persisted/worsened so she came here. CT abdomen this admission with findings consistent with ascending UTI. She was initially given IV merrem d/t multiple antibiotic allergies and had improvement of her symptoms. Urine and blood cultures were without growth here - suspect due to recent abx usage prior to hospitalization. Obtained results of urine culture from recent [place] visit on 06/13 which grew Maza-sensitive E. coli. ID was consulted and recommended 2 weeks of IV invanz given minimal improvement on oral abx, persistent symptoms. Midline placed for IV antibiotics 06/23. Patient was feeling better, afebrile without leukocytosis, headache/nausea improved, and was deemed stable for discharge. Patient clinically improved and was slated for discharge yesterday when she developed nausea/vomiting shortly after administration of invanz. Discussed with patient/family, she was monitored overnight and was administered Invanz again. No further episodes of nausea/vomiting reported. She was able to tolerate Invanz without issues on 06/24 and deemed stable for discharge. Medications: IV invanz (end date: 07/04/24) Mupirocin while receiving antibiotic Can take over the counter probiotic while on antibiotics Carafate as needed for acid reflux symptoms continue other home medications as previously prescribed Follow up: PCP 3-5 days please call to schedule / confirm appointments Followup: Angelica Mendes MD [Primary Care Provider] - 1-2 Weeks Time spent managing pt's care (in minutes): 45
[2024-06-23] MEDS: ERTAPENEM NA 1 GM in NA CHLORIDE 0.9% 100 ML IVPB SCH (10:50)
[2024-06-23] MEDS: ONDANSETRON 4 MG/2 ML VIAL IV PRN (11:15)
--- NOTE | 2024-06-23 11:32 | PN ---
Subjective: The patient is lying in bed. No new acute event. Family by the bedside. Objective: Vital Signs: Temperature 98, pulse 78, respirations 15, blood pressure . Lungs: Basal crackles. Heart: S1, S2. Regular. Abdomen: Soft, nontender. Bowel sounds present. Extremities: No edema. Laboratory Data: Shows WBC 6.5, hemoglobin 11.2, platelets 388. Chemistry shows BUN 12, creatinine 0.9. Micro data; cultures are negative to date. Urine growing more than 100,[address] sc an showing ascending urinary tract infection. Assessment/plan: Ascending urinary tract infection. Continue antibiotic for 2 weeks. Can be switch ed to Invanz to complete 2 weeks of treatment. We will follow the patient as needed. NF/MODL Voice ID: [id number] Report ID: [id number]
--- NOTE | 2024-06-23 11:50 | P.PN ---
Date of Service: 06/23/24 Subjective: patient reported episode of nausea/vomiting after administration of invanz felt nauseous early in the morning prior to antibiotic, has h/o GERD/valderrama's no rash / swelling will monitor overnight. patient/family agreeable to try invanz again tomorrow otherwise no other issues afebrile ROS: 10 point ROS as noted above, otherwise negative Physical Exam: GEN: Alert, oriented, NAD CV: Regular rate and rhythm, no edema Pulm: Nonlabored respirations on room air, clear bilaterally ABD: Soft, nontender, nondistended Neuro: Normal speech, normal affect vitals reviewed Problem List: UTI; recurrent / failed outpatient treatment JUAN, mild; resolved Gluten intolerance/constipation Hypertension Hypothyroidism Allergic Rhinitis Hx left Bunde branch block hx GERD / Valderrama's esophagus UTI; recurrent / failed outpatient treatment On admission presents with weakness, fatigue, headache, nausea for the last 1-2 weeks reports symptoms of headache, fatigue, nausea started ~1 day after starting montelukast. was seen on [place] [facility] ~1 week ago and [facility] twice in the last week was dealing with nausea/vomiting at the time. LFTs were reportedly elevated at [place]. Treated with IV fluids, IV antibiotics and discharged with oral abx. Given 1 week prescription for Nitrofurantoin on 06/13, and 5 day script for cipro 06/16 per EMR. Found to be hypotensive (70s systolic) and tachycardic in office prior and was advised to come to ER for further evaluation. CT abdomen (06/20): concern for Ascending UTI. incidental 1.5 cm right ovarian follicle. prior UTIs only causing symptoms of frequency Urine cx (06/20): Mixed orlin Blood cx (06/20): NGTD Obtained results of urine culture from [place] which grew Maza-sensitive E. coli continue empiric merrem for now (06/20-) ID consulted; recommending 2 weeks of IV invanz (end date: 07/04/24) Midline placed for IV abx afebrile, no leukocytosis continue probiotic while on antibiotics Patient clinically improved and was slated for discharge when she developed nausea/vomiting shortly after administration of invanz. likely reactive from Invanz will monitor overnight and try Invanz again tomorrow before attempting to swap abx Patient/family in agreement with plan PRN baudiliofrivette JUAN, mild; resolved suspect secondary to dehydration; improved with IVF continue to monitor renal function Gluten intolerance/constipation gluten free diet continue lactulose, lactinex, carafate Hypertension continue coreg Hypothyroidism continue home synthroid Allergic Rhinitis continue flonase Dispo: Home, ~1 day Time Spent Managing Pts Care (In Minutes): 41
[2024-06-23] MEDS: SUCRALFATE 1 GM TABLET PO SCH (16:04)
[2024-06-23] MEDS: MELATONIN 3 MG TABLET PO PRN (20:34)
[2024-06-23] MEDS: SODIUM CHLORIDE 0.9% 10ML INJ IV PRN (20:35)
[2024-06-24 07:24] LABS: Anion Gap 4.7 mEq/L (5.0-15.0); Magnesium 2.1 mg/dL (1.6-2.4); Potassium 3.7 mEq/L (3.5-5.1)
[2024-06-24] MEDS ORDERED: ERTAPENEM SODIUM 1 GM VIAL IVPB ONE (10:30)
[2024-06-24] MEDS: ERTAPENEM NA 1 GM in NA CHLORIDE 0.9% 100 ML IVPB SCH (10:34)
[2024-06-24 12:36] VITALS: BP 111/64; TEMP 97.3
--- NOTE | 2024-06-24 13:09 | PN ---
Subjective: The patient lying in bed. No new acute events. by the bedside. Objective: Vital Signs: Temperature 97, pulse 73, respirations 16, blood pressure 85/46. Lungs: Basal crackles. Heart: S1, S2. Regular. Abdomen: Soft, nontender. Bowel sounds present. Extremities: No edema. Laboratory Data: Shows WBC 6.5, hemoglobin 11.2, platelets 388. Chemistry shows BUN of 10, creatini ne 0.9. The patient is currently on Invanz, no reactions. Assessment And Plan: Urinary tract infection secondary to ESBL infection. Continue antibiotic thera py for total of 7 days. We will follow the patient as needed. NF/MODL Voice ID: [id number] Report ID: [id number]
== END 2024-06-24 14:17 | disposition home health service (06) | DRG 690 ==
LOC: ER 11:44 → 2ND 16:10
PROVIDERS: ADMIT Internal Medicine; ATTEND Hospitalist
PROC: 02HV33Z Insertion of Infusion Device into Superior Vena Cava, Percutaneous Approach (ICD-10-PCS; principal; 2024-06-22)
DX: N39.0 Urinary tract infection, site not specified (principal); N17.9 Acute kidney failure, unspecified; E87.1 Hypo-osmolality and hyponatremia; Z16.12 Extended spectrum beta lactamase (ESBL) resistance; I10 Essential (primary) hypertension; E86.0 Dehydration; K21.9 Gastro-esophageal reflux disease without esophagitis; M19.90 Unspecified osteoarthritis, unspecified site; M81.0 Age-related osteoporosis without current pathological fracture; I95.9 Hypotension, unspecified; E03.9 Hypothyroidism, unspecified; K59.00 Constipation, unspecified; I44.7 Left bundle-branch block, unspecified; J30.9 Allergic rhinitis, unspecified; B96.20 Unspecified Escherichia coli [E. coli] as the cause of diseases classified elsewhere; R39.15 Urgency of urination; Z88.2 Allergy status to sulfonamides; Z88.1 Allergy status to other antibiotic agents; Z88.8 Allergy status to other drugs, medicaments and biological substances; Z79.02 Long term (current) use of antithrombotics/antiplatelets; Z91.040 Latex allergy status; Z79.890 Hormone replacement therapy; Z79.899 Other long term (current) drug therapy
CPT/HCPCS: 36415; 71045; 74177; 80048; 80053; 80061; 81001; 83605; 83690; 83735; 84100; 84443; 84484; 85025; 85610; 85730; 87040; 87086; 87088; 93005; 96365; 99285; A4216; J0692; J1335; J2185; J2405; J2470; J7030; Q9967

== ENCOUNTER 2025-01-13 10:27 | Emergency (ER) | payer OTHER, MEDICARE ==
--- NOTE | 2025-01-13 11:50 | RAD REPORT ---
EXAMINATION: TWO VIEW CHEST XR CLINICAL INDICATION: COUGH TECHNIQUE: 2 views of the chest was performed. COMPARISON: 06/20/2024 FINDINGS: The lungs are hyperexpanded suggesting COPD. The heart is upper limit of normal in size. No displaced fractures evident. IMPRESSION: COPD is suspected without acute finding identified.
[2025-01-13 12:04] LABS: Influenza A Ag Negative; Influenza B Ag Negative; SARS-CoV-2 Antigen Rapid Res Negative (Negative)
--- NOTE | 2025-01-13 12:25 | EDPHYS ---
Physician Documentation [facility] Name: Kala Baig Age: 74 yrs Sex: Female : 1950 Arrival Date: 01/13/2025 Time: : Bed 12 Private MD: ED Physician Dieudonne Melara HPI: 01/13 11:08 This 74 yrs old Female presents to ER via Unassigned with complaints of Flu Symptoms. rn 11:08 The patient or guardian reports cough, flu symptoms. Onset: The symptoms/episode rn began/occurred 1 week(s) ago. Severity of symptoms: At their worst the symptoms were mild, in the emergency department the symptoms have improved. Patient reports flulike symptoms for 1 week. No fever. Has been on antibiotics and not improving. Spouse with identical symptoms and he got sick after she did. Both of them exposed to viral infection with household member. No shortness of breath. No hemoptysis.. Historical: - Allergies: 12:10 Albuterol; jl7 12:10 Amoxicillin; jl7 12:10 Augmentin; jl7 12:10 Doxycycline; jl7 12:10 Ketorolac; jl7 12:10 Latex; jl7 12:10 Nickel; jl7 12:10 Levaquin; jl7 12:10 Sulfa (Sulfonamide Antibiotics); jl7 - PMHx: 12:10 diverticulosis; eczema; Falx Meningioma; GERD; Hypertensive disorder; osteoarthritis; jl7 Osteopenia; Osteoporosis; Piriformis Syndrome; psoriasis; - Immunization history:: Adult Immunizations up to date. - Infectious Disease History:: Denies. - Family history:: not pertinent. - Social history:: Smoking status: Patient denies any tobacco usage or history of. - Hospitalizations: : No recent hospitalization is reported. ROS: 11:08 Constitutional: Negative for fever, chills, and weight loss, ENT: Positive for nasal rn congestion Cardiovascular: Negative for chest pain, palpitations, and edema, Respiratory: Positive for cough, negative for shortness of breath Abdomen/GI: Negative for abdominal pain, nausea, vomiting, diarrhea, and constipation, MS/Extremity: Negative for injury and deformity, Skin: Negative for injury, rash, and discoloration, Neuro: Negative for headache, weakness, numbness, tingling, and seizure, Exam: 11:08 Constitutional: This is a well developed, well nourished patient who is awake, alert, rn and in no acute distress. ENT: No stridor Cardiovascular: Regular rate and rhythm. No pulse deficits. Respiratory: No increased work of breathing, no retractions or nasal flaring. Vital Signs: 11:23 BP 133 / 82; Pulse 79; Resp 17; Temp 98.6; Pulse Ox 97% ; Weight 68.04 kg; Height 5 ft. jl7 5 in. ; Pain 2/10; 12:00 BP 146 / 85; Pulse 71; Resp 15; Pulse Ox 97% ; jl7 11:23 Body Mass Index 24.96 (68.04 kg, 165.1 cm) jl7 11:23 Pain Scale: Adult jl7 MDM: 10:34 Medical Screening Exam initiated rn 12:22 Differential Diagnosis: Bronchitis Influenza Upper Respiratory Infection Viral Syndrome rn Pneumonia. Data reviewed: vital signs, nurses notes, lab test result(s), radiologic studies, plain films, and as a result, I will discharge patient. Counseling: I had a detailed discussion with the patient and/or guardian regarding the historical points, exam findings, and any diagnostic results supporting the discharge/admit diagnosis, lab results, radiology results, the need for outpatient follow up, to return to the emergency department if symptoms worsen or persist or if there are any questions or concerns that arise at home. Special discussion: I discussed with the patient/guardian in detail that at this point there is no indication for admission to the hospital. It is understood, however, that if the symptoms persist or worsen the patient needs to return immediately for re-evaluation. Based on the history and exam findings, there is no indication for further emergent testing or inpatient evaluation. I discussed with the patient/guardian the need to see the soft iron inspector for further evaluation of the symptoms. ED course: No oxygen requirement, afebrile, chest x-ray images negative for pneumonia per my interpretation. Had discussion with her given COPD findings on imaging, states second hand smoke from parents for a long time. Also reports chronic cough for 2 years that makes sense. Will discharge without further treatment modifications as has already tried antibiotics and did not help. I believe this to be a viral infection.. 01/13 10:42 Order name: COVID-19 Ag + Flu A+B Ag; Complete Time: 12:09 rn 04/04 10:42 Order name: XRAY Chest Pa And Lat (2 Views); Complete Time: 11:51 rn Administered Medications: No medications were administered Disposition Summary: 01/13/25 12:24 Discharge Ordered Notes: Location: Home rn Problem: new rn Symptoms: have improved rn Condition: Stable rn Diagnosis - Cough rn Followup: rn - With: Private Physician - When: As needed - Reason: Recheck today's complaints, Re-evaluation by your physician Discharge Instructions: - Discharge Summary Sheet rn - Cough, Adult rn Forms: - Medication Reconciliation Form rn - Antibiotic medical assistant internal medicine - Prescription Opioid Use rn - Patient Portal Instructions rn - Leadership Thank You Letter rn Signatures: Dispatcher [employer] EDDieudonne Mckeon MD MD rn Leal, Jahala, RN RN jl7 Corrections: (The following items were deleted from the chart) 11:11 11:08 Constitutional: Negative for fever, chills, and weight loss, Cardiovascular: rn Negative for chest pain, palpitations, and edema, Respiratory: Positive for cough, negative for shortness of breath Abdomen/GI: Negative for abdominal pain, nausea, vomiting, diarrhea, and constipation, MS/Extremity: Negative for injury and deformity, Skin: Negative for injury, rash, and discoloration, Neuro: Negative for headache, weakness, numbness, tingling, and seizure, rn
--- NOTE | 2025-01-13 12:25 | ER ---
Nurse's Notes [facility] Name: Kala Baig Age: 74 yrs Sex: Female : 1950 Arrival Date: 01/13/2025 Time: 10:27 Bed 12 Private MD: Diagnosis: Cough Presentation: 01/13 11:23 Chief complaint: Patient states: Cough, congestion x 2 weeks. Coronavirus screen: jl7 Client presents with at least one sign or symptom that may indicate coronavirus-19. Ebola Screen: No symptoms or risks identified at this time. 11:23 Method Of Arrival: Ambulatory [facility] 11:23 Initial Sepsis Screen: Does the patient meet any 2 criteria? No. Patient's initial jl7 sepsis screen is negative. Does the patient have a suspected source of infection? No. Patient's initial sepsis screen is negative. Risk Assessment: Do you want to hurt yourself or someone else? Patient reports no desire to harm self or others. Onset of symptoms is unknown. 11:23 Acuity: FLORENCIA 4 jl7 Triage Assessment: 11:23 General: Appears in no apparent distress. uncomfortable, Behavior is calm, cooperative, jl7 appropriate for age. Pain: Complains of pain in chest when coughing. Historical: - Allergies: 12:10 Albuterol; jl7 12:10 Amoxicillin; jl7 12:10 Augmentin; jl7 12:10 Doxycycline; jl7 12:10 Ketorolac; jl7 12:10 Latex; jl7 12:10 Nickel; jl7 12:10 Levaquin; jl7 12:10 Sulfa (Sulfonamide Antibiotics); jl7 - PMHx: 12:10 diverticulosis; eczema; Falx Meningioma; GERD; Hypertensive disorder; osteoarthritis; jl7 Osteopenia; Osteoporosis; Piriformis Syndrome; psoriasis; - Immunization history:: Adult Immunizations up to date. - Infectious Disease History:: Denies. - Family history:: not pertinent. - Social history:: Smoking status: Patient denies any tobacco usage or history of. - Hospitalizations: : No recent hospitalization is reported. Screenin:00 [facility] ED Fall Risk Assessment (Adult) History of falling in the last 3 months, jl7 including since admission No falls in past 3 months (0 pts) Confusion or Disorientation No (0 pts) Intoxicated or Sedated No (0 pts) Impaired Gait No (0 pts) Mobility Assist Device Used No (0 pt) Altered Elimination No (0 pt) Score/Fall Risk Level 0 - 2 = Low Risk Oriented to surroundings, Maintained a safe environment. Abuse screen: Denies threats or abuse. Denies injuries from another. Nutritional screening: No deficits noted. Tuberculosis screening: No symptoms or risk factors identified. Vital Signs: 11:23 BP 133 / 82; Pulse 79; Resp 17; Temp 98.6; Pulse Ox 97% ; Weight 68.04 kg; Height 5 ft. jl7 5 in. ; Pain 2/10; 12:00 BP 146 / 85; Pulse 71; Resp 15; Pulse Ox 97% ; jl7 11:23 Body Mass Index 24.96 (68.04 kg, 165.1 cm) jl7 11:23 Pain Scale: Adult jl7 ED Course: 10:33 Patient arrived in ED. al6 10:34 Dieudonne Melara MD is Attending Physician. rn 10:55 XRAY Chest Pa And Lat (2 Views) In Process Unspecified. EDMS 11:23 Arm band placed on right wrist. jl7 12:09 Temi Levin, RN is Primary Nurse. jl7 12:10 Triage completed. jl7 12:54 Patient has correct armband on for positive identification. Provided Education on: jl7 discharge. 12:54 No provider procedures requiring assistance completed. Patient did not have IV access jl7 during this emergency room visit. Administered Medications: No medications were administered Medication: 12:00 VIS not applicable for this client. jl7 Outcome: 12:24 Discharge ordered by . rn 12:54 Discharged to home ambulatory, jl7 12:54 Condition: stable 12:54 Discharge instructions given to patient, Instructed on discharge instructions, follow up and referral plans. Demonstrated understanding of instructions, follow-up care, 12:54 Patient left the ED. jl7 Signatures: Dispatcher [employer] EDMS Dieudonne Melara MD MD rn Leal, Jahala, RN RN jl7 Brianne Smallwood al6
[2025-01-13 14:27] VITALS: BP 146/85; TEMP 98.6; O2SAT 97
== END 2025-01-13 12:54 | disposition home or self-care (01) ==
LOC: ER 10:27
DX: R05.9 Cough, unspecified (principal); Z11.52 Encounter for screening for COVID-19
CPT/HCPCS: 36415; 71046; 87428; 99282